=== PATIENT | female | born 1985 | race Caucasian/White ===

== ENCOUNTER 2018-02-21 14:15 | Emergency (ER) | payer MEDICAID ==
[~2018-02-21] VITALS: Ht 167.6 cm; Wt 137.0 kg
[~2018-02-21 14:15] MED LIST: ATE25T PO; DIAZ-351 PO; LEVO175T38 PO; TRAM50TA2 PO
[2018-02-21 14:29] VITALS: BP 160/87
[2018-02-21] MEDS ORDERED: HYDR-565 PO (15:16)
[2018-02-21] MEDS ORDERED: PENI250T2 PO (15:16)
[2018-02-21] MEDS ORDERED: HYDROcodone/acetaminophen 10/325mg tab PO STA (15:30)
== END 2018-02-21 15:42 | disposition home or self-care (01) ==
LOC: ER 14:16
DX: K04.7 Periapical abscess without sinus (principal); I10 Essential (primary) hypertension; G89.29 Other chronic pain; E03.9 Hypothyroidism, unspecified; Z88.5 Allergy status to narcotic agent; Z79.899 Other long term (current) drug therapy
CPT/HCPCS: 99283

== ENCOUNTER 2018-11-14 20:59 | Emergency (ER) | payer MEDICAID ==
[~2018-11-14] VITALS: Ht 167.6 cm; Wt 137.4 kg
[2018-11-14 21:05] VITALS: BP 160/103
[2018-11-14] MEDS ORDERED: ketorolac tromethamine 15mg/ml inj. IM ONE (21:40)
[2018-11-14] MEDS ORDERED: PRED20TA PO (21:43)
[2018-11-14] MEDS ORDERED: ACYC-202 PO (21:43)
[2018-11-14] MEDS ORDERED: prednisone 10mg tablet PO ONE (22:05)
[2018-11-14] MEDS ORDERED: predniSONE 20 mg tablet PO ONE (22:10)
== END 2018-11-14 22:19 | disposition home or self-care (01) ==
LOC: ER 21:00
DX: B02.9 Zoster without complications (principal); I10 Essential (primary) hypertension; E03.9 Hypothyroidism, unspecified; G89.29 Other chronic pain; Z98.890 Other specified postprocedural states; Z88.5 Allergy status to narcotic agent; Z79.899 Other long term (current) drug therapy
CPT/HCPCS: 96372; 99283; J1885; J7512

== ENCOUNTER 2019-03-13 12:51 | Emergency (ER) | payer MEDICAID ==
[~2019-03-13] VITALS: Ht 167.6 cm; Wt 145.4 kg
--- NOTE | 2019-03-13 13:00 | NUR ---
PATIENT WITH CRUSH INJURY TO LEFT FOURTH FINGER, BLEEDING STOPPED, GOT HAND CAUGHT IN LOUNGE CHAIR
[2019-03-13] MEDS ORDERED: CEPH-572 PO (13:52)
[2019-03-13] MEDS ORDERED: TRAM50TA2 PO (13:53)
[2019-03-13] MEDS ORDERED: traMADol 50MG tablet PO ONE (13:55)
[2019-03-13 15:09] VITALS: BP 143/87
== END 2019-03-13 15:16 | disposition home or self-care (01) ==
LOC: ER 12:52
DX: S62.635B Displaced fracture of distal phalanx of left ring finger, initial encounter for open fracture (principal); I10 Essential (primary) hypertension; E03.9 Hypothyroidism, unspecified; G89.29 Other chronic pain; Z98.890 Other specified postprocedural states; Z79.899 Other long term (current) drug therapy; X58.XXXA Exposure to other specified factors, initial encounter; Y93.89 Activity, other specified; Y92.89 Other specified places as the place of occurrence of the external cause; Y99.8 Other external cause status
CPT/HCPCS: 29130; 73140; 99283

== ENCOUNTER 2019-03-16 19:38 | Emergency (ER) | payer MEDICAID ==
[~2019-03-16] VITALS: Ht 167.6 cm; Wt 145.4 kg
[~2019-03-16 19:38] MED LIST changes: +CEPH-572 PO
[2019-03-16 19:41] VITALS: BP 155/89
== END 2019-03-16 21:20 | disposition home or self-care (01) ==
LOC: ER 19:39
DX: S61.205D Unspecified open wound of left ring finger without damage to nail, subsequent encounter (principal); I10 Essential (primary) hypertension; E03.9 Hypothyroidism, unspecified; G89.29 Other chronic pain; Z98.890 Other specified postprocedural states; Z79.899 Other long term (current) drug therapy; X58.XXXD Exposure to other specified factors, subsequent encounter
CPT/HCPCS: 29130; 99283

== ENCOUNTER 2023-11-17 19:22 | Emergency (ER) | payer MEDICAID ==
[~2023-11-17] VITALS: Ht 167.6 cm; Wt 119.2 kg
[~2023-11-17 19:22] MED LIST changes: -CEPH-572 PO
[2023-11-17] MEDS ORDERED: CEPH-585 PO (19:31)
[2023-11-17] MEDS ORDERED: SULF1TAB49 PO (19:31)
[2023-11-17 19:37] VITALS: BP 116/81; PULSE 88; RESP 16; TEMP 98.7; O2SAT 96
== END 2023-11-17 19:34 | disposition home or self-care (01) ==
LOC: ER 19:23
DX: L03.90 Cellulitis, unspecified (principal); I10 Essential (primary) hypertension; E03.9 Hypothyroidism, unspecified; Z98.890 Other specified postprocedural states; Z88.8 Allergy status to other drugs, medicaments and biological substances; Z79.899 Other long term (current) drug therapy
CPT/HCPCS: 99283